=== PATIENT | female | born 1960 | race Hispanic/Latino ===

== ENCOUNTER 2024-08-23 06:40 | Day surgery (SDC) | payer OTHER ==
[2024-08-23] VITALS (11 sets, daily range): BP systolic 103–152; BP diastolic 50–75; PULSE 60–71; RESP 14–16; TEMP 97.1–97.4
[~2024-08-23] VITALS: Ht 162.6 cm; Wt 81.6 kg
[~2024-08-23 06:40] MED LIST: LISI10TA24 PO
[2024-08-23] MEDS: 0.9%NACL 1000ML 1,000 ML IV ONE (08:17)
[2024-08-23] MEDS: DEXTROSE 50%-WATER 50 ML DISP.SYRIN IV ONE (08:20)
[2024-08-23] MEDS ORDERED: proPOFol 10 MG/ML 20ML VIAL IV ONE ×2 (09:01)
--- NOTE | 2024-08-23 10:38 | NUR ---
Patient aox4. Denies c/o pain or discomfort. Voiced understanding to EGD/Colonoscopy precautions and follow up expectations. Ambulated to bathroom with standby assistx 2. Voided large amount of clear urine. PIV discontinued with catheter tip intact. Full and complete Discharge instructions given to Patient and Family, Ms Reyes over telephone. All questions answered. Pending transportation. Addendum: 08/23/24 at 1204 by NICOLA CAI RN RN Remains unchanged. Daughter to transport home in [facility]
== END 2024-08-23 12:00 ==
LOC: ENDO 06:40 → DAH 06:40 → ENDO 12:00
PROVIDERS: ATTEND Internal Medicine Gastroenterology
DX: R19.7 Diarrhea, unspecified (principal); D12.2 Benign neoplasm of ascending colon; D12.5 Benign neoplasm of sigmoid colon; K29.70 Gastritis, unspecified, without bleeding; K57.30 Diverticulosis of large intestine without perforation or abscess without bleeding; K64.9 Unspecified hemorrhoids; R10.11 Right upper quadrant pain; R12 Heartburn; I10 Essential (primary) hypertension; E11.9 Type 2 diabetes mellitus without complications; K21.9 Gastro-esophageal reflux disease without esophagitis; Z90.49 Acquired absence of other specified parts of digestive tract; Z79.4 Long term (current) use of insulin; Z79.899 Other long term (current) drug therapy
CPT/HCPCS: 45385; 43239; 82948 ×3; J7030 ×2; J7070; J2704 ×2; A4615; A4215 ×2; A4223; A4657; A4222; A4221; A4663; A4606; J3490